=== PATIENT | male | born 1965 | race Caucasian/White ===

== ENCOUNTER → 2022-02-28 | Outpatient (CLI) | payer OTHER ==
--- NOTE | 2022-02-28 16:48 | MR ---
MRI CERVICAL SPINE: CLINICAL HISTORY: Constant neck pain for 3 months causing pain or weakness into left arm. Radiculopat hy. Cervical disc degeneration. TECHNIQUE: Multiplanar, multisequence imaging of the cervical spine is performed without IV contrast. COMPARISON: None. FINDINGS: Sagittal images of the cervical spine show the craniocervical junction to appear within nor mal limits. The cervical and upper thoracic spinal cord is normal in caliber and signal. Vertebral alignment is straightened. The vertebral body and intravertebral disk heights are normal. Moderate m ultilevel anterior spurring in the mid to lower cervical spine. The bone marrow signal intensity is w ithin normal limits. Axial images show C2-C3 level to appear within normal limits. Axial images at C3-C4 level show focal central disc protrusion mildly facing anterior thecal sac, pat ent bilateral neural foramina. Axial images at C4-C5 level show focal left paracentral disc protrusion mildly effacing anterior thec al sac, patent bilateral neural foramina. Axial images at C5-C6 level show focal left paracentral disc protrusion effacing the anterior thecal sac causing indentation of ventral surface spinal cord. Patent bilateral neural foramina. Axial images at C6-C7 level show focal central disc protrusion mildly effaces the anterior thecal sac , patent bilateral neural foramina. Axial images at C7-T1 level appear within normal limits. IMPRESSION: Straightening of cervical spine with multilevel degenerative changes greatest at C5-C6 le marybeth as detailed above.
--- NOTE | 2022-03-01 04:41 | MR ---
EXAMINATION TYPE: MR shoulder LT wo con DATE OF EXAM: 02/28/2022 COMPARISON: None HISTORY: Left shoulder pain Multiplanar multiecho imaging of the left shoulder with no contrast. The biceps tendon is intact. There is slight increased joint fluid anteriorly. Subscapularis tendon i s intact. The glenoid palomo appear intact. There is moderate-sized full-thickness tear of the anterior supraspinatus tendon near the attachment on the greater tuberosity of the humerus. No retraction. There is some mild hypertrophic spurring at the AC joint and mild subacromial impingement. No fracture seen. There is 7 mm area of rounded fluid signal in the humeral head at the greater tuberosity consistent with a degenerative cyst. There are o ther smaller degenerative cysts in the superior aspect of the humeral head. The scapula is intact. The infraspinatus tendon is intact. IMPRESSION: There is full-thickness tear of the anterior aspect of the supraspinatus tendon. There is mild subacr omial impingement with spurring at the AC joint. Small shoulder joint effusion and subdeltoid effusio n. Multiple small degenerative cysts in the humeral head.
== END | disposition home or self-care (01) ==
LOC: RADMRIMAIN 15:44
PROVIDERS: ATTEND Orthopaedic Surgery
DX: M50.30 Other cervical disc degeneration, unspecified cervical region (principal); M95.8 Other specified acquired deformities of musculoskeletal system; M75.22 Bicipital tendinitis, left shoulder; M54.12 Radiculopathy, cervical region; M25.512 Pain in left shoulder
CPT/HCPCS: 72141